=== PATIENT | female | born 2000 | race Caucasian/White ===

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

== ENCOUNTER 2024-03-09 19:38 | Emergency (ER) | payer BC, OTHER, SELFPAY ==
[~2024-03-09] VITALS: Ht 154.9 cm; Wt 45.9 kg
[2024-03-09 23:46] VITALS: BP 109/59; TEMP 97.3; O2SAT 93
[2024-03-09] MEDS ORDERED: ISOVUE-370 76% 100ML VIAL As Ordered ONE (23:47)
== END 2024-03-10 00:22 | disposition home or self-care (01) ==
LOC: M ED 19:38
DX: R07.0 Pain in throat (principal); F90.9 Attention-deficit hyperactivity disorder, unspecified type; F17.290 Nicotine dependence, other tobacco product, uncomplicated
CPT/HCPCS: 36415; 70498; 80047; 99284; Q9967